=== PATIENT | male | born 1985 | race African-American/Black ===

== ENCOUNTER 2020-07-11 19:17 | Emergency (ER) | payer OTHER ==
[~2020-07-11] VITALS: Ht 182.9 cm; Wt 74.8 kg
[2020-07-11 22:29] VITALS: BP 117/79
== END 2020-07-11 23:12 | disposition home or self-care (01) ==
LOC: EDBD 19:17 → ER 19:17
DX: S23.41XA Sprain of ribs, initial encounter (principal); S73.102A Unspecified sprain of left hip, initial encounter; S29.012A Strain of muscle and tendon of back wall of thorax, initial encounter; M62.838 Other muscle spasm; R51 Headache; V89.2XXA Person injured in unspecified motor-vehicle accident, traffic, initial encounter; Y93.I9 Activity, other involving external motion; Y92.488 Other paved roadways as the place of occurrence of the external cause; Y99.8 Other external cause status
CPT/HCPCS: 70450; 71101; 72125; 73030; 73502